=== PATIENT | female | born 2005 | race Caucasian/White ===

== ENCOUNTER 2024-02-10 16:53 | Outpatient (CLI) | payer BC, SELFPAY ==
[2024-02-10 23:11] LABS: Chlamydia DNA Amplified* NOT DETECTED (No Detected); GC DNA Amplified* NOT DETECTED (No Detected)
== END 2024-02-10 16:54 | disposition home or self-care (01) ==
PROVIDERS: PCP Emergency Medicine; Visit Provider Physician Assistant Medical
DX: Z00.00 Encounter for general adult medical examination without abnormal findings (principal); Z11.3 Encounter for screening for infections with a predominantly sexual mode of transmission; Z83.49 Family history of other endocrine, nutritional and metabolic diseases; Z13.0 Encounter for screening for diseases of the blood and blood-forming organs and certain disorders involving the immune mechanism
CPT/HCPCS: 84443; 86376; 87491; 87591

== ENCOUNTER 2024-11-19 16:04 | Outpatient (CLI) | payer BC, SELFPAY ==
[2024-11-19 23:46] LABS: Chlamydia DNA Amplified* NOT DETECTED (No Detected); GC DNA Amplified* NOT DETECTED (No Detected)
== END 2024-11-19 16:05 | disposition home or self-care (01) ==
PROVIDERS: PCP Emergency Medicine; Visit Provider Physician Assistant Medical
DX: Z00.00 Encounter for general adult medical examination without abnormal findings (principal); R35.0 Frequency of micturition; Z83.49 Family history of other endocrine, nutritional and metabolic diseases; Z79.3 Long term (current) use of hormonal contraceptives; Z11.1 Encounter for screening for respiratory tuberculosis; Z11.3 Encounter for screening for infections with a predominantly sexual mode of transmission; Z11.4 Encounter for screening for human immunodeficiency virus [HIV]; Z11.59 Encounter for screening for other viral diseases
CPT/HCPCS: 83520; 84439; 84443; 84480; 84481; 84482; 86376; 86480; 86703; 86803; 87086; 87491; 87591

== ENCOUNTER 2025-03-10 15:15 | Outpatient (CLI) | payer BC, SELFPAY ==
[2025-03-10 23:03] LABS: Chlamydia DNA Amplified* NOT DETECTED (No Detected); GC DNA Amplified* NOT DETECTED (No Detected)
== END 2025-03-10 15:16 | disposition home or self-care (01) ==
PROVIDERS: PCP Physician Assistant Medical; Visit Provider Physician Assistant Medical
DX: Z00.00 Encounter for general adult medical examination without abnormal findings (principal); N89.8 Other specified noninflammatory disorders of vagina; Z12.4 Encounter for screening for malignant neoplasm of cervix
CPT/HCPCS: 87109; 87491; 87591; 87624; 87625; 88141; 88142; 88175